=== PATIENT | female | born 1990 | race Caucasian/White ===

== ENCOUNTER 2017-11-16 17:35 | Emergency (ER) | payer BC ==
[2017-11-16 17:43] VITALS: RESP 18
--- NOTE | 2017-11-16 18:11 | ED ---
Abdominal Pain HPI - General Chief Complaint: Abdominal Pain Stated Complaint: 7 wks preg- cramping Time Seen by Provider: 11/16/17 17:53 Source: patient, RN notes reviewed Mode of arrival: ambulatory Limitations: no limitations - History of Present Illness Initial Comments: This is a 27-year-old female who presents to the emergency department with chief complaint abdominal cramping and vaginal discharge. Patient states that her last menstrual period was October 07. She states she is currently 7 weeks . She reports over the past one week she has been having left lower abdominal cramping. She reports that last night she developed a nude/pink colored vaginal discharge. She denies any vaginal bleeding. Denies any fevers or chills, chest pain or shortness of breath, nausea or vomiting. Patient states that this is her third . She states that her first baby was born full term and was stillborn due to hydrocephalus. She states her second ended in a miscarriage. Patient states that she does have an appointment scheduled with Dr. Trujillo later this month. - Related Data Home Medications Medication Instructions Recorded Confirmed Dextroamphetamine/Amphetamine 30 mg PO DAILY 04/26/15 11/16/17 [Adderall Xr] Allergies Allergy/AdvReac Type Severity Reaction Status Date / Time No Known Allergies Allergy Verified 11/16/17 17:43 Review of Systems ROS Statement: Those systems with pertinent positive or pertinent negative responses have been documented in the HPI. ROS Other: All systems not noted in ROS Statement are negative. Past Medical History Past Medical History: Atrial Flutter History of Any Multi-Drug Resistant Organisms: None Reported Past Surgical History: Adenoidectomy, Tonsillectomy Past Psychological History: ADD/ADHD Smoking Status: Former smoker Past Alcohol Use History: None Reported Past Drug Use History: None Reported General Exam - General Exam Comments Initial Comments: General: Awake and alert, well-developed; in no apparent distress. HEENT: Head atraumatic, normocephalic. Pupils are equal, round and reactive to light. Extraocular movements intact. Oropharynx moist without erythema or exudate. Neck: Supple. Normal ROM. Cardiovascular: Regular rate and rhythm. No murmurs, rubs or gallops. Chest symmetrical. Respiratory: Lungs clear to auscultation bilaterally. No wheezes, rales or rhonchi. Normal respiratory effort with no use of accessory muscles. Abdomen: Soft, non-tender, non-distended. No rigidity, rebound or guarding. Normal bowel sounds in all 4 quadrants. Musculoskeletal: Normal ROM, no tenderness bilateral upper and lower extremities. Ambulating normally. Skin: [place], warm and dry without rashes or lesions. Neurological: Alert and oriented x3. CN II-XII grossly intact. Speech is fluent and answers are appropriate. No focal neuro deficits. Psychiatric: Normal mood and affect. No overt signs of depression or anxiety noted. Limitations: no limitations Course Vital Signs 11/16/17 17:41 Temperature 98.8 F Pulse Rate 78 Respiratory 18 Rate Blood Pressure 139/76 O2 Sat by Pulse 98 Oximetry Medical Decision Making - Medical Decision Making This is a 27-year-old female who presents to the emergency department with chief complaint of abdominal cramping and abnormal vaginal discharge. Patient states her last menstrual period was October 07 and believes she is 7 weeks . She reports abdominal cramping for one week and a nude/pinkish colored discharge that began last night. CBC reveals a slightly elevated white count 12.8 with left shift 8.9. CMP and UA revealed no significant abnormalities. Obstetrical ultrasound reveals a gestational sac and yolk sac with no pole. Gestational age of 5 weeks 4 days. Instructed patient to follow-up with her [employer] PACKAGE EXAMINER for repeat ultrasound in 10-14 days. Instructed patient to have serum hCG redrawn in 48 hours. Patient's vital signs are stable and she is in no acute distress. Patient will be discharged home at this time. She is in agreement and voices understanding. All questions were answered. - Lab Data Result diagrams: 11/16/17 18:41 11/16/17 18:41 Lab Results 11/16/17 11/16/17 11/16/17 Range/Units 18:41 18:41 18:41 WBC 12.8 H (3.8-10.6) k/uL RBC 4.23 (3.80-5.40) m/uL Hgb 13.4 (11.4-16.0) gm/dL Hct 39.7 (34.0-46.0) % MCV 94.0 (80.0-100.0) fL MCH 31.7 (25.0-35.0) pg MCHC 33.7 (31.0-37.0) g/dL RDW 12.8 (11.5-15.5) % Plt Count 252 (150-450) k/uL Neutrophils % 69 % Lymphocytes % 24 % Monocytes % 3 % Eosinophils % 3 % Basophils % 0 % Neutrophils # 8.9 H (1.3-7.7) k/uL Lymphocytes # 3.1 (1.0-4.8) k/uL Monocytes # 0.4 (0-1.0) k/uL Eosinophils # 0.3 (0-0.7) k/uL Basophils # 0.0 (0-0.2) k/uL Sodium 138 (137-145) mmol/L Potassium 3.9 (3.5-5.1) mmol/L Chloride 102 (98-107) mmol/L Carbon Dioxide 24 (22-30) mmol/L Anion Gap 12 mmol/L BUN 10 (7-17) mg/dL Creatinine 0.50 L (0.52-1.04) mg/dL Est GFR (CKD-EPI)AfAm >90 (>60 ml/min/1.73 sqM) Est GFR (CKD-EPI)NonAf >90 (>60 ml/min/1.73 sqM) Glucose 90 (74-99) mg/dL Calcium 9.3 (8.4-10.2) mg/dL Total Bilirubin 0.5 (0.2-1.3) mg/dL AST 26 (14-36) U/L ALT 19 (9-52) U/L Alkaline Phosphatase 45 (38-126) U/L Total Protein 7.1 (6.3-8.2) g/dL Albumin 4.3 (3.5-5.0) g/dL Urine Color Yellow Urine Appearance Clear (Clear) Urine pH 6.0 (5.0-8.0) Ur Specific [place] 1.017 (1.001-1.035) Urine Protein Negative (Negative) Urine Glucose (UA) Negative (Negative) Urine Ketones Negative (Negative) Urine Blood Negative (Negative) Urine Nitrite Negative (Negative) Urine Bilirubin Negative (Negative) Urine Urobilinogen <2.0 (<2.0) mg/dL Ur Leukocyte Esterase Negative (Negative) - Radiology Data Radiology results: report reviewed, image reviewed Obstetrical ultrasound impression: Intrauterine gestational sac and yolk sac. Follow up exam in 10-14 days is recommended to confirm a living fetus if clinically indicated. No adnexal mass. Disposition Clinical Impression: Abdominal pain affecting Disposition: HOME SELF-CARE Condition: Good Instructions: Abdominal Pain in (ED) Additional Instructions: As discussed, please have serum hCG repeated in 48 hours. Please follow up with your [employer] EXAMINER. Please follow up with primary care provider within 1-2 days. Return to emergency department if symptoms should worsen or any concerns arise. Is patient prescribed a controlled substance at d/c from ED?: No Referrals: Adriano Christopher MD [Primary Care Provider] - 1-2 days Time of Disposition: 19:46
[2017-11-16 18:51] LABS: Appearance,Urine Clear (Clear); Basophils % (A) 0 %; Bilirubin,Urine Negative (Negative); Blood,Urine Negative (Negative); Color,Urine Yellow; Eosinophils # (A) 0.3 k/uL (0-0.7); Eosinophils % (A) 3 %; Glucose,Urine (UA) Negative (Negative); HCT 39.7 % (34.0-46.0); HGB 13.4 gm/dL (11.4-16.0); Ketones,Urine Negative (Negative); Leukocyte Esterase,Urine Negative (Negative); Lymphocytes # (A) 3.1 k/uL (1.0-4.8); Lymphocytes % (A) 24 %; MCH 31.7 pg (25.0-35.0); MCHC 33.7 g/dL (31.0-37.0); Mean Platelet Volume 7.1; Monocytes # (A) 0.4 k/uL (0-1.0); Monocytes % (A) 3 %; Neutrophils # (A) 8.9 k/uL (1.3-7.7); Neutrophils % (A) 69 %; Nitrite,Urine Negative (Negative); Platelet Count 252 k/uL (150-450); Protein,Urine Negative (Negative); RBC 4.23 m/uL (3.80-5.40); RDW 12.8 % (11.5-15.5); Specific Gravity,Urine 1.017 (1.001-1.035); Urobilinogen,Urine <2.0 mg/dL (<2.0); WBC 12.8 k/uL (3.8-10.6)
[2017-11-16 19:00] LABS: ALT 19 U/L (9-52); AST 26 U/L (14-36); Albumin 4.3 g/dL (3.5-5.0); Alkaline Phosphatase 45 U/L (38-126); Anion Gap 12 mmol/L; Blood Urea Nitrogen 10 mg/dL (7-17); Calcium 9.3 mg/dL (8.4-10.2); Carbon Dioxide 24 mmol/L (22-30); Chloride 102 mmol/L (98-107); Glucose 90 mg/dL (74-99); Potassium 3.9 mmol/L (3.5-5.1); Sodium 138 mmol/L (137-145); Total Bilirubin 0.5 mg/dL (0.2-1.3); Total Protein 7.1 g/dL (6.3-8.2)
--- NOTE | 2017-11-16 19:34 | US ---
EXAMINATION TYPE: Transabdominal DATE OF EXAM: 05/15/17 COMPARISON: NONE CLINICAL HISTORY: abdominal pain; discharge. EXAM PERFORMED: Transvaginal (TV) and Transabdominal (TA) EXAM MEASUREMENTS: GESTATIONAL AGE / DATING Physician Established: Not yet established Dates by LMP: (5 weeks/5 days) EDC: 07/14/2018 Dates by First Scan: No previous this is first scan Dates by Current Scan for: (5 weeks/4 days)- by gestational sac only EDC: 07/15/2018 MATERNAL ANATOMY Uterus: 8.3 x 5.3 x 6.8 cm Right Ovary: 3.5 x 2.7 x 2.7 cm Left Ovary: 2.4 x 1.2 x 2.4 cm Post CDS / Adnexa: wnl Presence of free fluid: No Presence of corpus luteal cyst: Yes, right ovary measuring 2.7 x 1.8 x 1.6 cm Presence of subchorionic bleed: No GESTATION / SURVEY MSD: 1.3 (5 weeks/4 days) Yolk Sac (normal less than 6mm): 3 mm IUP: No pole seen at this time, only probable early gestational sac and yolk sac Date of LMP: 10/07/2017 Beta HcG (if available): Not available at this time No pole seen at this time, only probable early gestational sac and yolk sac visualized on this exam. IMPRESSION: Intrauterine gestational sac and yolk sac. Follow-up exam in 10-14 days is recommended to confirm a l iving fetus if clinically indicated. No adnexal mass.
[2017-11-16 20:00] VITALS: BP 122/72; PULSE 86; TEMP 97.9
[2017-11-16 20:01] LABS: HCG,Quantitative Serum 18160.3 mIU/mL
== END 2017-11-16 19:56 | disposition home or self-care (01) ==
LOC: EC 17:35
DX: O99.89 Other specified diseases and conditions complicating pregnancy, childbirth and the puerperium (principal); R10.32 Left lower quadrant pain; O99.111 Other diseases of the blood and blood-forming organs and certain disorders involving the immune mechanism complicating pregnancy, first trimester; D72.829 Elevated white blood cell count, unspecified; N89.8 Other specified noninflammatory disorders of vagina; Z87.891 Personal history of nicotine dependence; O99.341 Other mental disorders complicating pregnancy, first trimester; F90.9 Attention-deficit hyperactivity disorder, unspecified type; Z79.899 Other long term (current) drug therapy; Z3A.01 Less than 8 weeks gestation of pregnancy
CPT/HCPCS: 36415; 76801; 76817; 80053; 81003; 84702; 85025; 99284

== ENCOUNTER → 2017-11-18 | Outpatient (CLI) | payer BC | LOC: LABMAIN 11:31 | PROVIDERS: ATTEND Physician Assistant Medical | DX: R10.32 Left lower quadrant pain (principal) | CPT/HCPCS: 36415; 84702 ==

== ENCOUNTER 2017-11-24 14:23 | Emergency (ER) | payer BC ==
--- NOTE | 2017-11-24 15:26 | ED ---
Female Urogenital HPI - General Chief complaint: Vaginal Bleeding Stated complaint: 6 wks and bleeding Time Seen by Provider: 11/24/17 15:00 Source: patient Mode of arrival: ambulatory Limitations: no limitations - History of Present Illness Initial comments: Patient is a 27-year-old female presenting for vaginal bleeding. Patient states that she is 7 weeks based on ultrasound when she came in last week for abdominal cramping. She states at that time, she was told that she had a sac and had serial hCGs but she is unsure what this hCG showed. She presents today for vaginal spotting. She states that this morning, she had one episode of nonbloody discharge and her abdominal cramping is at baseline. She admits to nausea but no vomiting or diarrhea as well as urinary symptoms. She also denies any fevers or chills. She states that she has not met with her used car manager yet. - Related Data Home Medications Medication Instructions Recorded Confirmed 78/Iron/Folate 1/Dha 1 cap PO DAILY 11/24/17 11/24/17 [Prenate Dha Softgel] Mah-Nnfb-Ngnfv Acid 1 cap PO DAILY 11/24/17 11/24/17 [-U Capsule (formulary)] Allergies Allergy/AdvReac Type Severity Reaction Status Date / Time Milk Containing Products Allergy Diarrhea Verified 11/24/17 15:24 [Dairy] soy Allergy Diarrhea Verified 11/24/17 15:24 wheat Allergy Diarrhea Verified 11/24/17 15:24 adhesive AdvReac Itching Verified 11/24/17 15:26 Review of Systems ROS Statement: Those systems with pertinent positive or pertinent negative responses have been documented in the HPI. Constitutional: Negative for chills, fatigue and fever. HENT: Negative for congestion. Respiratory: Negative for chest tightness, shortness of breath and wheezing. Negative for cough Cardiovascular: Negative for chest pain and palpitations. Gastrointestinal: Positive for abdominal cramping and nausea. Negative for abdominal distention, diarrhea, and vomiting. Genitourinary: Negative for dysuria. Positive for vaginal bleeding Musculoskeletal: Negative for back pain, neck pain and neck stiffness. Skin: Negative for color change. Neurological: Negative for dizziness, speech difficulty, weakness and light- headedness. Psychiatric/Behavioral: Negative for agitation and confusion. Negative for anxiety ROS Other: All systems not noted in ROS Statement are negative. Past Medical History Past Medical History: No Reported History History of Any Multi-Drug Resistant Organisms: None Reported Past Surgical History: Adenoidectomy, Tonsillectomy Past Psychological History: ADD/ADHD Smoking Status: Former smoker Past Alcohol Use History: None Reported Past Drug Use History: None Reported General Exam - General Exam Comments Initial Comments: Constitutional: Pt is oriented to person, place, and time. Pt appears well- developed and well-nourished. No distress. HENT: Head: Normocephalic and atraumatic. Eyes: EOM are normal. Neck: Normal range of motion. Neck supple. Cardiovascular: Normal rate, regular rhythm, S1 normal, S2 normal and normal heart sounds. Exam reveals no gallop and no friction rub. No murmur heard. Pulmonary/Chest: Effort normal and breath sounds normal. No tachypnea and no bradypnea. No respiratory distress. No wheezes or rales noted. Abdominal: Soft. Bowel sounds are normal. Pt exhibits no shifting dullness, no distension, no pulsatile liver, no fluid wave, no abdominal bruit and no ascites. There is no tenderness. There is no rigidity, no rebound, no guarding, no tenderness at McBurney's point and negative Brambila's sign. Musculoskeletal: Normal range of motion. Neurological: Pt is alert and oriented to person, place, and time. No cranial nerve deficit. Skin: Skin is warm and dry. No rash noted. Pt is not diaphoretic. No erythema. No pallor. Psychiatric: Pt has a normal mood and affect. Pt behavior is normal. Thought content normal. Limitations: no limitations Course Vital Signs 11/24/17 11/24/17 14:27 19:28 Temperature 98.1 F 98.6 F Pulse Rate 77 74 Respiratory 18 16 Rate Blood Pressure 101/64 131/77 O2 Sat by Pulse 99 100 Oximetry Medical Decision Making - Medical Decision Making Laboratory studies showed that there was mild leukocytosis but not surprising considering the patient was . There is also no evidence of acute kidney injury and transvaginal ultrasound was performed and showed intrauterine with possible subchorionic bleed. Patient's blood type was also Rh+ and therefore brought him was not administered. Patient was advised to follow- up with obstetrics in the next 1-2 days and/or return to emergency department if the symptoms worsen. Patient was agreeable plan. - Lab Data Result diagrams: 11/24/17 15:30 11/24/17 15:30 Lab Results 11/24/17 11/24/17 11/24/17 Range/Units 15:28 15:30 15:30 WBC 13.0 H (3.8-10.6) k/uL RBC 4.25 (3.80-5.40) m/uL Hgb 13.3 (11.4-16.0) gm/dL Hct 40.1 (34.0-46.0) % MCV 94.3 (80.0-100.0) fL MCH 31.4 (25.0-35.0) pg MCHC 33.3 (31.0-37.0) g/dL RDW 13.1 (11.5-15.5) % Plt Count 250 (150-450) k/uL Neutrophils % 68 % Lymphocytes % 25 % Monocytes % 4 % Eosinophils % 1 % Basophils % 0 % Neutrophils # 8.8 H (1.3-7.7) k/uL Lymphocytes # 3.3 (1.0-4.8) k/uL Monocytes # 0.5 (0-1.0) k/uL Eosinophils # 0.2 (0-0.7) k/uL Basophils # 0.0 (0-0.2) k/uL PT (9.0-12.0) sec INR (<1.2) APTT (22.0-30.0) sec Sodium 137 (137-145) mmol/L Potassium 3.7 (3.5-5.1) mmol/L Chloride 103 (98-107) mmol/L Carbon Dioxide 24 (22-30) mmol/L Anion Gap 10 mmol/L BUN 11 (7-17) mg/dL Creatinine 0.43 L (0.52-1.04) mg/dL Est GFR (CKD-EPI)AfAm >90 (>60 ml/min/1.73 sqM) Est GFR (CKD-EPI)NonAf >90 (>60 ml/min/1.73 sqM) Glucose 79 (74-99) mg/dL Calcium 9.2 (8.4-10.2) mg/dL HCG, Quant mIU/mL Urine Color Urine Appearance (Clear) Urine pH (5.0-8.0) Ur Specific [place] (1.001-1.035) Urine Protein (Negative) Urine Glucose (UA) (Negative) Urine Ketones (Negative) Urine Blood (Negative) Urine Nitrite (Negative) Urine Bilirubin (Negative) Urine Urobilinogen (<2.0) mg/dL Ur Leukocyte Esterase (Negative) Urine HCG, Qual (Not Detectd) Blood Type A Positive Blood Type Recheck No 11/24/17 11/24/17 11/24/17 Range/Units 15:30 15:30 15:30 WBC (3.8-10.6) k/uL RBC (3.80-5.40) m/uL Hgb (11.4-16.0) gm/dL Hct (34.0-46.0) % MCV (80.0-100.0) fL MCH (25.0-35.0) pg MCHC (31.0-37.0) g/dL RDW (11.5-15.5) % Plt Count (150-450) k/uL Neutrophils % % Lymphocytes % % Monocytes % % Eosinophils % % Basophils % % Neutrophils # (1.3-7.7) k/uL Lymphocytes # (1.0-4.8) k/uL Monocytes # (0-1.0) k/uL Eosinophils # (0-0.7) k/uL Basophils # (0-0.2) k/uL PT 10.2 (9.0-12.0) sec INR 1.0 (<1.2) APTT 22.9 (22.0-30.0) sec Sodium (137-145) mmol/L Potassium (3.5-5.1) mmol/L Chloride (98-107) mmol/L Carbon Dioxide (22-30) mmol/L Anion Gap mmol/L BUN (7-17) mg/dL Creatinine (0.52-1.04) mg/dL Est GFR (CKD-EPI)AfAm (>60 ml/min/1.73 sqM) Est GFR (CKD-EPI)NonAf (>60 ml/min/1.73 sqM) Glucose (74-99) mg/dL Calcium (8.4-10.2) mg/dL HCG, Quant mIU/mL Urine Color Yellow Urine Appearance Clear (Clear) Urine pH 6.0 (5.0-8.0) Ur Specific [place] 1.016 (1.001-1.035) Urine Protein Negative (Negative) Urine Glucose (UA) Negative (Negative) Urine Ketones Negative (Negative) Urine Blood Negative (Negative) Urine Nitrite Negative (Negative) Urine Bilirubin Negative (Negative) Urine Urobilinogen <2.0 (<2.0) mg/dL Ur Leukocyte Esterase Negative (Negative) Urine HCG, Qual Detected (Not Detectd) Blood Type Blood Type Recheck 11/24/17 Range/Units 15:30 WBC (3.8-10.6) k/uL RBC (3.80-5.40) m/uL Hgb (11.4-16.0) gm/dL Hct (34.0-46.0) % MCV (80.0-100.0) fL MCH (25.0-35.0) pg MCHC (31.0-37.0) g/dL RDW (11.5-15.5) % Plt Count (150-450) k/uL Neutrophils % % Lymphocytes % % Monocytes % % Eosinophils % % Basophils % % Neutrophils # (1.3-7.7) k/uL Lymphocytes # (1.0-4.8) k/uL Monocytes # (0-1.0) k/uL Eosinophils # (0-0.7) k/uL Basophils # (0-0.2) k/uL PT (9.0-12.0) sec INR (<1.2) APTT (22.0-30.0) sec Sodium (137-145) mmol/L Potassium (3.5-5.1) mmol/L Chloride (98-107) mmol/L Carbon Dioxide (22-30) mmol/L Anion Gap mmol/L BUN (7-17) mg/dL Creatinine (0.52-1.04) mg/dL Est GFR (CKD-EPI)AfAm (>60 ml/min/1.73 sqM) Est GFR (CKD-EPI)NonAf (>60 ml/min/1.73 sqM) Glucose (74-99) mg/dL Calcium (8.4-10.2) mg/dL HCG, Quant 92818.8 mIU/mL Urine Color Urine Appearance (Clear) Urine pH (5.0-8.0) Ur Specific [place] (1.001-1.035) Urine Protein (Negative) Urine Glucose (UA) (Negative) Urine Ketones (Negative) Urine Blood (Negative) Urine Nitrite (Negative) Urine Bilirubin (Negative) Urine Urobilinogen (<2.0) mg/dL Ur Leukocyte Esterase (Negative) Urine HCG, Qual (Not Detectd) Blood Type Blood Type Recheck Disposition Clinical Impression: Threatened Disposition: HOME SELF-CARE Condition: Good Instructions: Threatened Miscarriage (ED) Is patient prescribed a controlled substance at d/c from ED?: No Referrals: Adriano Christopher MD [Primary Care Provider] - 1-2 days John Gusman DO [Doctor of Osteopathic Medicine] - 1-2 days Time of Disposition: 19:10
[2017-11-24 16:10] LABS: Basophils % (A) 0 %; Eosinophils # (A) 0.2 k/uL (0-0.7); Eosinophils % (A) 1 %; HCT 40.1 % (34.0-46.0); HGB 13.3 gm/dL (11.4-16.0); Lymphocytes # (A) 3.3 k/uL (1.0-4.8); Lymphocytes % (A) 25 %; MCH 31.4 pg (25.0-35.0); MCHC 33.3 g/dL (31.0-37.0); MCV 94.3 fL (80.0-100.0); Monocytes # (A) 0.5 k/uL (0-1.0); Monocytes % (A) 4 %; Neutrophils # (A) 8.8 k/uL (1.3-7.7); Neutrophils % (A) 68 %; Platelet Count 250 k/uL (150-450); RBC 4.25 m/uL (3.80-5.40); RDW 13.1 % (11.5-15.5)
[2017-11-24 16:11] LABS: Appearance,Urine Clear (Clear); Bilirubin,Urine Negative (Negative); Blood,Urine Negative (Negative); Color,Urine Yellow; Glucose,Urine (UA) Negative (Negative); Ketones,Urine Negative (Negative); Leukocyte Esterase,Urine Negative (Negative); Nitrite,Urine Negative (Negative); Protein,Urine Negative (Negative); Specific Gravity,Urine 1.016 (1.001-1.035); Urobilinogen,Urine <2.0 mg/dL (<2.0)
[2017-11-24 16:21] LABS: Partial Thromboplastin Time 22.9 sec (22.0-30.0); Prothrombin Time 10.2 sec (9.0-12.0)
[2017-11-24 16:24] LABS: Anion Gap 10 mmol/L; Blood Urea Nitrogen 11 mg/dL (7-17); Calcium 9.2 mg/dL (8.4-10.2); Carbon Dioxide 24 mmol/L (22-30); Chloride 103 mmol/L (98-107); Glucose 79 mg/dL (74-99); Potassium 3.7 mmol/L (3.5-5.1); Sodium 137 mmol/L (137-145)
--- NOTE | 2017-11-24 17:39 | US ---
EXAMINATION TYPE: Transabdominal DATE OF EXAM: 05/15/17 COMPARISON: First trimester ultrasound 8 days ago. CLINICAL HISTORY: pain last week. Abnormal discharge this morning. EXAM PERFORMED: Transabdominal (TA) EXAM MEASUREMENTS: GESTATIONAL AGE / DATING Physician Established: Not yet established Dates by LMP: (6 weeks/6 days) EDC: 07/14/2018 Dates by First Scan: (6 weeks 5 days) EDC: 07/15/2018 Dates by Current Scan for: (6 weeks/3 days) EDC: 07/17/2018 MATERNAL ANATOMY Uterus: 10.0 x 5.3 x 7.9 cm; anteverted, appears wnl Right Ovary: 2.7 x 1.8 x 2.1 cm; appears wnl Left Ovary: 2.1 x 1.6 x 2.0 cm; appears wnl Post CDS / Adnexa: wnl Presence of free fluid: no Presence of corpus luteal cyst: not seen Presence of subchorionic bleed: Hypoechoic area left of the gest sac ?implantation versus subchorioni c bleed (1.9 x 0.6 x 1.6 cm) GESTATION / SURVEY CRL: 0.6 cm (6 weeks/3 days) Yolk Sac (normal less than 6mm): 2 mm Heart Rate: 132 bpm Rhythm: Normal IUP: Viable IUP Date of LMP: 10/07/2017 Beta HcG (if available): Not available at this time Single live intrauterine gestation is now identified as gestational sac, yolk sac and pole are seen. Anterior and inferior there is small to tiny fluid collection could reflect new subchorionic he morrhage. No free fluid is seen in pelvic cul-de-sac. Both ovaries are seen, no suspicious extraovarian adnexal lesions are noted. IMPRESSION: Single live intrauterine gestation is now confirmed, mean crown-rump length is 0.6 cm corresponding t o 6 week 3 day old fetus.
[2017-11-24 19:30] VITALS: BP 131/77; PULSE 74; RESP 16; TEMP 98.6
== END 2017-11-24 19:33 | disposition home or self-care (01) ==
LOC: EC 14:23
DX: O20.0 Threatened abortion (principal); Z3A.01 Less than 8 weeks gestation of pregnancy; Z91.011 Allergy to milk products; Z91.018 Allergy to other foods; Z91.048 Other nonmedicinal substance allergy status; Z87.891 Personal history of nicotine dependence
CPT/HCPCS: 36415; 76801; 80048; 81003; 81025; 84702; 85025; 85610; 85730; 86900; 86901; 99284